=== PATIENT | male | born 1970 | race Caucasian/White ===

== ENCOUNTER 2017-02-14 11:47 | Emergency (ER) | payer OTHER | END 2017-02-14 14:52 | disposition home or self-care (01) | LOC: ER 11:47 | DX: M54.2 Cervicalgia (principal); F41.9 Anxiety disorder, unspecified; I10 Essential (primary) hypertension; G89.29 Other chronic pain; M54.9 Dorsalgia, unspecified; F17.220 Nicotine dependence, chewing tobacco, uncomplicated; Z79.899 Other long term (current) drug therapy; Z88.0 Allergy status to penicillin; Z88.5 Allergy status to narcotic agent; Z88.8 Allergy status to other drugs, medicaments and biological substances | CPT/HCPCS: 36415; Q9967 ==

== ENCOUNTER 2017-04-11 08:49 | Emergency (ER) | payer OTHER | END 2017-04-11 09:55 | disposition home or self-care (01) | LOC: ER 08:49 | DX: L03.115 Cellulitis of right lower limb (principal); M54.5 Low back pain; F41.9 Anxiety disorder, unspecified; I10 Essential (primary) hypertension; F17.200 Nicotine dependence, unspecified, uncomplicated; Z88.0 Allergy status to penicillin; Z88.5 Allergy status to narcotic agent; Z88.6 Allergy status to analgesic agent; Z79.899 Other long term (current) drug therapy ==